=== PATIENT | male | born 1940 | race Caucasian/White ===

== ENCOUNTER → 2019-03-15 10:58 | Outpatient (CLI) | payer MEDICARE, SELFPAY ==
--- NOTE | 2019-03-15 11:34 | XR_ITS ---
XR knee LT 3V HISTORY: ITS.REASON: LEFT ANTERIOR KNEE PAIN ORDERING PHYSICIAN: Lana Lo MD PATIENT AGE: 78 years COMPARISON: None FINDINGS: Moderate osteoarthritic changes are present involving all 3 compartments which is worse at the medial compartment and patellofemoral joint. No fracture or dislocation. There is generalized vascular calcification. At least 2 calcifications are noted along the posterior aspect of the knee joint suspicious for loose bodies measuring up to 4 mm. 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
== END ==
PROVIDERS: PCP Emergency Medicine; Visit Provider Emergency Medicine
DX: M25.562 Pain in left knee (principal)
CPT/HCPCS: 73562

== ENCOUNTER 2020-09-02 16:19 | Emergency (ER) | payer MEDICARE, SELFPAY ==
[2020-09-02 17:30] VITALS: BP 121/71; PULSE 75; RESP 19; TEMP 36.8; O2SAT 99; BMI 19.0
--- NOTE | 2020-09-02 17:47 | HMH.EDUTC ---
[facility] [place] Impression: Encounter for laboratory testing for COVID-19 virus Disposition: Home, Self-Care Condition on Discharge: Good Instructions: DI for COVID-19 (Suspected or Confirmed ), Coronavirus Disease 2019, Preventing the Spread of Coronavirus Discharge Instructions Additional Instructions: *Monitor Temp, Over the counter Motrin or Tylenol as directed/as needed Tylenol every 4 hours and Motrin every 6 hours (as long as your family doctor has told you that you can take it) for fever or pain. and straight to ER if unable to lower temp less than 101.0 after medication given Follow up IMMEDIATELY for new or worsening symptoms or no Noticeable improvement over the next 48-72 hours. 911 for difficulty breathing or swallowing You were tested for today for COVID19 your test result should be back in the next 24-48 hours, you may call to the [facility] to see if your test results are back in the next 48 hours [phone] [facility] hours are 9am-9pm You was given a handout with instructions for Self Quarantine and Self isolation for while you wait on test results and what to do if they are positive If you are positive the Health Dept will be contacting you also Referrals: Cj Haney MD [Primary Care Provider] - As needed Time of Disposition: 17:49 Medical Decision Making - Inocente Inquiry Pt receiving controlled substance: No Inocente was queried for this patient: No Vital Signs: 09/02/20 17:30 Temperature 98.2 F Temperature Source Oral Pulse Rate [Left Brachial] 75 Respiratory Rate 19 Blood Pressure [Left Arm] 121/71 Blood Pressure Mean [Left Arm] 87 Blood Pressure Source [Left Arm] Automatic Cuff Blood Pressure Position [Left Arm] Sitting 02 Sat by Pulse Oximetry 99 Oxygen Delivery Method Room Air Orders (Tests/Meds): ORDERS Category Date Time Status Covid-19 Nasal PCR ([facility]) Routine Lab 09/02/20 17:27 [place] [facility] [place] - General Stated complaint: cov test Time Seen by Provider: 09/02/20 17:47 Mode of Arrival: Ambulatory Source of Information: Patient Limitations: No Limitations Description of Symptoms (Recalled from Triage Doc. by RN): COVID TEST D/T EXPOSURE; DENIES SYMPTOMS HEENT Symptoms (Recalled from RN notes): No Resp Symptoms (Recalled from RN notes): No Skin Symptoms (Recalled from RN notes): No MS Symptoms (Recalled from RN notes): No Functional Status (Recalled from RN notes): WNL - History of Present Illness Provider Complaint: Patient states that he was recently around his son that tested positive for COVID yesterday States that he isnt having any symptoms but wanted to get tested - Related Data Allergies Allergy/AdvReac Type Severity Reaction Status Date / Time diphenhydramine Allergy Mild Unverified 08/17/17 14:16 [From BENADRYL] prednisone [PREDNISONE] Allergy Mild Unverified 08/17/17 14:16 - Worker's Comp Is this a Worker's Comp case?: No [facility] History - Hepatitis A Screen Drug use history?: No High risk sexual behaviors?: No History of sexually transmitted infection?: No Currently employed?: No Childcare worker?: No Do you have indoor plumbing?: Yes Do you have electricity?: Yes Attestation statement:: This patient has been screened for Hepatitis A risk factors. I have reviewed the patient's past medical history: Yes - Social History Alcohol Intake: never Occupational Status: other ROS Obtained: Yes All systems reviewed & no additional complaints, Yes Systems reviewed as appropriate & no additional complaints - Constitutional Constitutional: Reports system reviewed and no additional complaints, except as docu, Denies body ache, Denies chills, Denies fever(s), Denies headache(s) - ENT Ears, Nose, Mouth, and Throat: Reports system reviewed and no additional complaints, except as docu, Denies nasal congestion, Denies nasal discharge, Denies sore throat - Cardiovascular Cardiovascular: Reports system reviewed and no additional complaints,
[2020-09-02 17:55] VITALS: BP 121/71; PULSE 75; RESP 19; TEMP 36.8; O2SAT 99
== END 2020-09-02 17:56 | disposition home or self-care (01) ==
PROVIDERS: Emergency Provider Nurse Practitioner; PCP Family Medicine
DX: Z20.822 Contact with and (suspected) exposure to COVID-19 (principal)
CPT/HCPCS: G0463; 99202; U0003

== ENCOUNTER → 2021-07-02 15:44 | Outpatient (CLI) | payer MEDICARE, SELFPAY ==
[2021-07-02 16:21] LABS: Basophils # 0.1 K/mm3 (0-0.2); Basophils % 1.1 % (0.1-2.0); Eosinophils # 0.2 K/mm3 (0.0-0.4); Eosinophils % 2.5 % (0.1-12.0); Hemoglobin 15.2 g/dL (14.1-18.0); Lymphocytes # 2.5 K/mm3 (0.7-4.5); Lymphocytes % 40.6 % (10-50); Mean Corpuscular Hemoglobin 30.5 pg (27.0-31.2); Mean Corpuscular Volume 92.3 fl (80-94); Mean Platelet Volume 10.3 fl (7.4-10.4); Monocytes # 0.3 K/mm3 (0.1-1.0); Neutrophils # 3.2 K/mm3 (1.8-7.8); Neutrophils % 50.9 % (37.0-80.0); Platelet Count 234 K/mm3 (142-424); Red Blood Count 4.98 M/mm3 (4.60-6.20); Red Cell Distribution Width 13.7 % (11.5-17.5); White Blood Count 6.3 K/mm3 (4.8-10.8)
[2021-07-02 16:47] LABS: Alanine Aminotransferase 17 U/L (12-78); Albumin Level 4.1 g/dl (3.5-5.0); Albumin/Globulin Ratio 1.4 (1.1-1.8); Alkaline Phosphatase 66 U/L (38-126); Anion Gap 10.6 mEq/L (5-15); Aspartate Amino Transferase 25 U/L (17-59); Bilirubin,Total 0.8 mg/dl (0.2-1.3); Blood Urea Nitrogen 12 mg/dl (9-20); Carbon Dioxide 29 mmol/L (22.0-30.0); Chloride 103 mmol/L (98-107); Chol/HDL Ratio 5.1 (1-3.5); Cholesterol 241 mg/dl (140-200); Estimated Glomerular Filt Rate 93 ml/min (>60); GFR (African American) 112 ML/MIN (>60); Glucose 132 mg/dl (74-100); HDL Cholesterol 47 mg/dl (40-60); Potassium 4.6 mmoL/L (3.5-5.1); Sodium 138 mmol/L (136-145); Total Protein,Serum 7.1 g/dl (6.3-8.2); Triglycerides 193 mg/dl (30-150); VLDL Cholesterol 39 mg/dL (0-40)
[2021-07-02 16:58] LABS: Direct LDL Cholesterol 165.66 mg/dL (100-129)
[2021-07-02 17:04] LABS: T4 (Thyroxine) 10.8 ug/dl (5.53-11.0)
[2021-07-02 17:18] LABS: Thyroid Stimulating Hormone 1.64 uIU/mL (0.465-4.68)
[2021-07-02 18:05] LABS: Hemoglobin A1C 6.5 % (4.0-6.0)
== END ==
PROVIDERS: Visit Provider Nurse Practitioner Family
DX: E11.9 Type 2 diabetes mellitus without complications (principal); Z79.4 Long term (current) use of insulin
CPT/HCPCS: 80053; 80061; 83036; 84436; 84443; 85025

== ENCOUNTER → 2021-10-27 16:00 | Outpatient (CLI) | payer MEDICARE, SELFPAY ==
[2021-10-27 17:36] LABS: Basophils # 0.1 K/mm3 (0-0.2); Basophils % 1.3 % (0.1-2.0); Eosinophils # 0.2 K/mm3 (0.0-0.4); Eosinophils % 2.2 % (0.1-12.0); Hematocrit 44.1 % (42.0-52.0); Hemoglobin 14.6 g/dL (14.1-18.0); Lymphocytes # 2.4 K/mm3 (0.7-4.5); Lymphocytes % 36.1 % (10-50); Mean Corpuscular HGB Conc 33.1 g/dL (31.8-35.4); Mean Corpuscular Hemoglobin 29.8 pg (27.0-31.2); Mean Corpuscular Volume 90.2 fl (80-94); Mean Platelet Volume 10.7 fl (7.4-10.4); Monocytes # 0.4 K/mm3 (0.1-1.0); Monocytes % 5.4 % (1.7-9.3); Neutrophils # 3.7 K/mm3 (1.8-7.8); Platelet Count 220 K/mm3 (142-424); Red Blood Count 4.89 M/mm3 (4.60-6.20); Red Cell Distribution Width 14.2 % (11.5-17.5); White Blood Count 6.7 K/mm3 (4.8-10.8)
[2021-10-27 17:44] LABS: Alanine Aminotransferase 21 U/L (12-78); Albumin Level 4.1 g/dl (3.5-5.0); Albumin/Globulin Ratio 1.3 (1.1-1.8); Anion Gap 10.5 mEq/L (5-15); Aspartate Amino Transferase 25 U/L (17-59); Bilirubin,Total 1.1 mg/dl (0.2-1.3); Blood Urea Nitrogen 20 mg/dl (9-20); Calcium 9.1 mg/dl (8.4-10.2); Carbon Dioxide 27 mmol/L (22.0-30.0); Chloride 105 mmol/L (98-107); Estimated Glomerular Filt Rate 93 ml/min (>60); GFR (African American) 112 ML/MIN (>60); Globulin 3.1 g/dL (1.3-3.2); Glucose 146 mg/dl (74-100); Potassium 4.5 mmoL/L (3.5-5.1); Sodium 138 mmol/L (136-145); Total Protein,Serum 7.2 g/dl (6.3-8.2); Triglycerides 195 mg/dl (30-150)
[2021-10-27 17:45] LABS: Alkaline Phosphatase 71 U/L (38-126); Chol/HDL Ratio 5.7 (1-3.5); Cholesterol 224 mg/dl (140-200); HDL Cholesterol 39 mg/dl (40-60); VLDL Cholesterol 39 mg/dL (0-40)
[2021-10-27 17:56] LABS: Direct LDL Cholesterol 146.63 mg/dL (100-129)
[2021-10-27 18:00] LABS: T4 (Thyroxine) 10.2 ug/dl (5.53-11.0)
[2021-10-27 18:14] LABS: Thyroid Stimulating Hormone 1.55 uIU/mL (0.465-4.68)
[2021-10-27 18:15] LABS: Hemoglobin A1C 6.7 % (4.0-6.0)
[2021-10-27 18:22] LABS: Amphetamine/Metha Screen,Urine Negative ng/ml (<1000)
[2021-10-27 18:23] LABS: Barbiturates Screen,Urine Negative ng/ml (<200)
[2021-10-27 18:24] LABS: Benzodiazepines Screen,Urine Negative ng/ml (<200); Cannabinoid Screen,Urine Negative ng/ml (<50)
[2021-10-27 18:25] LABS: Cocaine Screen,Urine Negative ng/ml (<300); Methadone Screen,Urine Negative ng/ml (<300)
[2021-10-27 18:26] LABS: Opiate Screen,Urine Negative ng/ml (<300)
[2021-10-27 18:27] LABS: Phencyclidine Screen,Urine Negative ng/ml (<25)
== END ==
PROVIDERS: Visit Provider Nurse Practitioner Family
DX: E11.65 Type 2 diabetes mellitus with hyperglycemia (principal); Z79.4 Long term (current) use of insulin; M54.2 Cervicalgia; Z79.899 Other long term (current) drug therapy
CPT/HCPCS: 80053; 80061; 80305; 82043; 83036; 84436; 84443; 85025

== ENCOUNTER → 2021-11-10 10:20 | Outpatient (CLI) | payer MEDICARE, SELFPAY ==
--- NOTE | 2021-11-10 10:27 | XR_ITS ---
FINAL REPORT CLINICAL HISTORY: neck pain, pain on right side of neck, pain for 5 weeks FINDINGS: CERVIX SPINE Multiple views were obtained. There is no acute fracture. There is mild retrolisthesis of C5 on C6. There are moderate and severe degenerative changes with disc space narrowing and osteophytes. There is multilevel mild and moderate neural foraminal narrowing. There is no soft tissue abnormality. IMPRESSION: Moderate and severe changes of degenerative disc disease as above. Reviewed, Interpreted and Dictated by Yogesh Mercado III, MD Transcribed by Laurie Cameron Authenticated by Yogesh Mercado III, MD on 11/10/2021 12:55:[address] [facility]
== END ==
PROVIDERS: PCP Nurse Practitioner Family; Visit Provider Nurse Practitioner Family
DX: M54.2 Cervicalgia (principal)
CPT/HCPCS: 72050

== ENCOUNTER → 2021-12-29 13:22 | Outpatient (CLI) | payer MEDICARE, SELFPAY ==
--- NOTE | 2021-12-29 13:23 | MR_ITS ---
FINAL REPORT CLINICAL HISTORY: Back pain. [id number] AGO HEARD A POP IN NECK. RT SIDED POSTERIOR HEAD PAIN. PRESSURE IN HEAD. NO INJURY OR TRAUMA. FINDINGS: Multiplanar MR imaging of the cervical spine was performed without contrast. On the sagittal T2-weighted images, disc degeneration is seen at multiple levels. There are endplate changes at multiple levels. There is no evidence of fracture. The vertebral alignment is normal. The cervical spinal cord has an unremarkable appearance without evidence of mass, edema or syrinx. The cervicomedullary junction is normal. C2-3: An annular bulge is present. There is a left paracentral disc protrusion which contacts the anterior surface of the cord. C3-4: A disc osteophyte complex is present with severe bilateral neural foraminal narrowing. There is mild cord contouring on the left. C4-5: A disc osteophyte complex is present with severe bilateral neural foraminal narrowing. There is mild central canal stenosis with and AP diameter of the thecal sac of 9 mm. C5-6: A disc osteophyte complex is present with severe bilateral neural foraminal narrowing. There is mild central canal stenosis with and AP diameter of the thecal sac of 9 mm. C6-7: A disc osteophyte complex is present with severe bilateral neural foraminal narrowing. There is mild central canal stenosis with and AP diameter of the thecal sac of 9 mm. C7-T1: An annular bulge is present. There is moderate bilateral neuroforaminal narrowing. T1-T2: An annular bulge is present. There is mild left neural foraminal narrowing. IMPRESSION: Multilevel degenerative disc disease with spondylosis and areas of severe neural foraminal narrowing. Mild central canal stenosis C4-C5 through C6-C7. Reviewed, Interpreted and Dictated by Yogesh Mercado III, MD Transcribed by Ivana Medina Authenticated by Yogesh Mercado III, MD on 12/29/2021 03:36:49 PM [facility]
== END ==
PROVIDERS: PCP Nurse Practitioner Family; Visit Provider Nurse Practitioner Family
DX: M54.2 Cervicalgia
CPT/HCPCS: 72141; 76376

== ENCOUNTER → 2022-01-01 09:50 | Outpatient (CLI) | payer MEDICARE, SELFPAY ==
[2022-01-01 10:04] LABS: Microscopic, Urine URINE MICROSCOPIC (MICROSCOPIC)
[2022-01-01 10:35] LABS: Appearance,Urine CLEAR (Clear); Bilirubin,Urine Negative (Negative); Blood, Urine Negative (Negative); Color,Urine YELLOW (Yellow); Glucose,Urine (UA) Negative (Negative); Ketones,Urine Negative (Negative); Leukocyte Esterase,Urine Negative (Negative); Nitrate,Urine Negative (Negative); Protein,Urine Negative (Negative); Specific Gravity, Urine 1.025 (1.005-1.030); Urobilinogen,Urine 0.2 EU/dl (0.2)
[2022-01-01 10:37] LABS: Basophils # 0.2 K/mm3 (0-0.2); Basophils % 2.5 % (0.1-2.0); Eosinophils # 0.3 K/mm3 (0.0-0.4); Eosinophils % 4.6 % (0.1-12.0); Hemoglobin 14.3 g/dL (14.1-18.0); Lymphocytes # 2.4 K/mm3 (0.7-4.5); Lymphocytes % 35.2 % (10-50); Mean Corpuscular HGB Conc 33.2 g/dL (31.8-35.4); Mean Corpuscular Hemoglobin 30.5 pg (27.0-31.2); Mean Corpuscular Volume 91.9 fl (80-94); Mean Platelet Volume 9.8 fl (7.4-10.4); Monocytes # 0.4 K/mm3 (0.1-1.0); Monocytes % 5.7 % (1.7-9.3); Neutrophils # 3.6 K/mm3 (1.8-7.8); Neutrophils % 52.1 % (37.0-80.0); Platelet Count 194 K/mm3 (142-424); Red Blood Count 4.68 M/mm3 (4.60-6.20); Red Cell Distribution Width 13.9 % (11.5-17.5); White Blood Count 6.8 K/mm3 (4.8-10.8)
[2022-01-01 10:52] LABS: Albumin Level 3.9 g/dl (3.5-5.0); Anion Gap 9.9 mEq/L (5-15); Blood Urea Nitrogen 19 mg/dl (9-20); Calcium 9.3 mg/dl (8.4-10.2); Carbon Dioxide 31 mmol/L (22.0-30.0); Chloride 102 mmol/L (98-107); Estimated Glomerular Filt Rate 81 ml/min (>60); GFR (African American) 98 ML/MIN (>60); Glucose 193 mg/dl (74-100); Phosphorous 3.9 mg/dl (2.5-4.5); Potassium 4.9 mmoL/L (3.5-5.1); Sodium 138 mmol/L (136-145)
[2022-01-01 10:53] LABS: Bacteria,Urine Trace /lpf; WBC,Urine Occasional #/hpf (0-3)
[2022-01-01 11:03] LABS: Intact Parathyroid Hormone 25.8 pg/mL (7.5-53.5)
[2022-01-01 11:07] LABS: 25-OH Vitamin D, Total 43.6 ng/mL (30-100)
[2022-01-01 11:29] LABS: Microalbumin/Creatinine Ratio 6.7
[2022-01-01 11:30] LABS: Creatinine,Urine Random 138 mg/dL (Not Estab.)
== END ==
PROVIDERS: PCP Nurse Practitioner Family; Visit Provider Internal Medicine Nephrology
DX: R80.9 Proteinuria, unspecified (principal); E55.9 Vitamin D deficiency, unspecified
CPT/HCPCS: 36415; 80069; 81001; 82043; 82306; 82570; 83970; 84155; 85025

== ENCOUNTER → 2022-01-05 13:54 | Outpatient (POV) | payer MEDICARE, SELFPAY | PROVIDERS: Visit Provider Internal Medicine Nephrology | DX: Z00.00 Encounter for general adult medical examination without abnormal findings (principal) ==

== ENCOUNTER → 2022-01-23 09:52 | Outpatient (CLI) | payer MEDICARE, SELFPAY ==
[2022-01-23 17:02] LABS: Alanine Aminotransferase 15 U/L (12-78); Albumin Level 3.8 g/dl (3.5-5.0); Albumin/Globulin Ratio 1.3 (1.1-1.8); Alkaline Phosphatase 85 U/L (38-126); Anion Gap 11.5 mEq/L (5-15); Aspartate Amino Transferase 23 U/L (17-59); Basophils # 0.1 K/mm3 (0-0.2); Basophils % 2.6 % (0.1-2.0); Bilirubin,Total 0.9 mg/dl (0.2-1.3); Blood Urea Nitrogen 18 mg/dl (9-20); Calcium 9.3 mg/dl (8.4-10.2); Carbon Dioxide 28 mmol/L (22.0-30.0); Chloride 104 mmol/L (98-107); Chol/HDL Ratio 5.3 (1-3.5); Cholesterol 228 mg/dl (140-200); Eosinophils # 0.2 K/mm3 (0.0-0.4); Eosinophils % 2.8 % (0.1-12.0); Estimated Glomerular Filt Rate 81 ml/min (>60); GFR (African American) 98 ML/MIN (>60); Glucose 188 mg/dl (74-100); HDL Cholesterol 43 mg/dl (40-60); Hematocrit 44.5 % (42.0-52.0); Hemoglobin 14.8 g/dL (14.1-18.0); Lymphocytes # 2.2 K/mm3 (0.7-4.5); Lymphocytes % 41.3 % (10-50); Mean Corpuscular HGB Conc 33.3 g/dL (31.8-35.4); Mean Corpuscular Hemoglobin 30.4 pg (27.0-31.2); Mean Corpuscular Volume 91.5 fl (80-94); Monocytes # 0.3 K/mm3 (0.1-1.0); Monocytes % 5.4 % (1.7-9.3); Neutrophils # 2.6 K/mm3 (1.8-7.8); Neutrophils % 47.9 % (37.0-80.0); Platelet Count 193 K/mm3 (142-424); Potassium 4.5 mmoL/L (3.5-5.1); Red Blood Count 4.86 M/mm3 (4.60-6.20); Red Cell Distribution Width 13.8 % (11.5-17.5); Sodium 139 mmol/L (136-145); Total Protein,Serum 6.8 g/dl (6.3-8.2); Triglycerides 170 mg/dl (30-150); VLDL Cholesterol 34 mg/dL (0-40); White Blood Count 5.4 K/mm3 (4.8-10.8)
[2022-01-23 17:13] LABS: Direct LDL Cholesterol 149.45 mg/dL (100-129)
[2022-01-23 17:19] LABS: 25-OH Vitamin D, Total 44.7 ng/mL (30-100); Hemoglobin A1C 6.7 % (4.0-6.0)
[2022-01-23 17:20] LABS: T4 (Thyroxine) 11.9 ug/dl (5.53-11.0)
== END ==
PROVIDERS: PCP Nurse Practitioner Family; Visit Provider Nurse Practitioner Family
DX: E11.65 Type 2 diabetes mellitus with hyperglycemia; Z79.4 Long term (current) use of insulin
CPT/HCPCS: 80053; 80061; 82306; 83036; 84436; 84443; 84681; 85025

== ENCOUNTER → 2022-04-20 10:36 | Outpatient (CLI) | payer MEDICARE, SELFPAY ==
--- NOTE | 2022-04-20 10:46 | XR_ITS ---
FINAL REPORT CLINICAL HISTORY: LT KNEE PAIN FINDINGS: LEFT KNEE Three views of the left knee were obtained. There is no acute fracture or dislocation. There is moderate narrowing of the medial compartment joint space. There is subchondral sclerosis and osteophyte formation. There are small osteophytes along the undersurface of the patella. Soft tissues are unremarkable. IMPRESSION: Degenerative changes with no acute bony abnormality. Reviewed, Interpreted and Dictated by Jose Hubbard MD Transcribed by Laurie Cameron Authenticated and [facility]
== END ==
PROVIDERS: PCP Nurse Practitioner Family; Visit Provider Nurse Practitioner Family
DX: M25.562 Pain in left knee (principal)
CPT/HCPCS: 73562

== ENCOUNTER → 2022-10-26 23:46 | Outpatient (CLI) | payer MEDICARE, SELFPAY | PROVIDERS: Visit Provider Nurse Practitioner Family | DX: B35.1 Tinea unguium (principal) | CPT/HCPCS: 87102; 87206; 87220 ==

== ENCOUNTER → 2023-01-19 14:12 | Outpatient (CLI) | payer MEDICARE, SELFPAY ==
--- NOTE | 2023-01-19 14:16 | XR_ITS ---
FINAL REPORT CLINICAL HISTORY: LT ANKLE/JOINT PAIN FINDINGS: Left ankle Three views were obtained. There is no acute fracture or dislocation. There are moderate degenerative changes. There is lateral tilt of the talus. Chronic calcification is seen inferior to the medial malleolus. IMPRESSION: Degenerative and chronic appearing findings. Reviewed, Interpreted and Dictated by Yogesh Mercado III, MD Transcribed by Pia Wynn Authenticated and [facility]
== END ==
PROVIDERS: PCP Nurse Practitioner Family; Visit Provider Nurse Practitioner Family
DX: M25.572 Pain in left ankle and joints of left foot (principal)
CPT/HCPCS: 73610

== ENCOUNTER 2025-04-10 13:30 | Outpatient (CLI) | payer MEDICARE, SELFPAY ==
--- OUTSIDE RECORDS SUMMARY | 2025-04-10 13:36 | XMS_ITS | Clinical Summary ---
Author Organization Healthcare Address [address] [place] [address] Care Team Providers Care Hand Ironer Name Role Phone Renetta Harley PATTERNMAKER HELPER Primary Care Provider [phone] Syl Balderas PATTERNMAKER HELPER Unavailable [phone] Allergies No known active allergies Medications gabapentin (Neurontin) 600 MG tablet Take by mouth 3 (three) times a day. Active insulin aspart protamine-insuli n aspart (NovoLOG Mix 70-30) (70-30) 100 UNIT/ML injection Inject under the skin 2 (two) times a day with meals. Active ferrous sulfate 324 (65 Fe) MG EC tablet Take 324 mg by mouth 1 (one) time each day with breakfast. Do not crush, chew, or split. Active aspirin 81 MG EC tablet Take 81 mg by mouth 1 (one) time each day. Active zinc gluconate 50 MG tablet Take 50 mg by mouth 1 (one) time each day. Active cholecalciferol (Vitamin D-3) 25 MCG (1000 UT) capsule Take 1,000 Units by mouth 1 (one) time each day. Active Active Problems Problem Noted Date Diagnosed Date Microalbuminuria 01/05/2022 CKD (chronic kidney disease) stage 1, GFR 90 ml/min or greater 01/05/2022 Family History Medical History Relation Name Comments Cancer Father Cancer Mother Diabetes Mother Relation Name Status Comments Father Mother Social History Tobacco Use Types Packs/Day Years Used Date Smoking Tobacco: Never Smokeless Tobacco: Never Alcohol Use Standard Drinks/Week Comments Yes 0 (1 standard drink = 0.6 oz pur e alcohol) a few times a week Sex and Gender Information Value Date Recorded Sex Assigned at Not on file Legal Sex Male 2:11 PM EDT Gender Identity Not on file Sexual Orientation Not on file Last Filed Vital Signs Vital Sign Reading Time Taken Comments Blood Pressure 142/82 01/19/2022 1:10 PM EDT Pulse 77 01/19/2022 1:10 PM EDT Temperature - - Respiratory Rate - - Oxygen Saturation 93% 01/19/2022 1:10 PM EDT Inhaled Oxygen Concentration - - Weight 74.8 kg (165 lb) 01/19/2022 1:10 PM EDT Height 181.6 cm (5' 11.5 ) 01/19/2022 1:10 PM ED T Body Mass Index 22.69 01/19/2022 1:10 PM EDT Plan of Treatment Health Maintenance Due Date Last Done Comments [facility]-Depression Screening 1940 [facility]-Infant/Child/Adol SDOH Screenings 1940 [facility]- SDOH Screenings 1957 [facility]-Adult SDOH Screenings 1957 [facility]-DTaP,Tdap,and Td Vaccines (1 - Tdap) 1958 [facility]-Zoster Vaccines (1 of 2) 1989 [facility]-RSV Vaccine: 60+ Years or (1 - 1-dose 75+ series) 2014 [facility]-Pneumococcal Vaccine: 50+ Years (2 of 2 - PCV) 07/05/2021 07/05/2020 [id number] Vaccine ( season) 2024 07/08/2021, 11/06/2020, 10/09/2020 [facility]-Influenza Vaccine (#1) 2025 06/13/2018 HPV Vaccines Aged Out No longer eligi ble based on patient's age to complete this topic [facility]-HIB Vaccines Aged Out No longer e ligible based on patient's age to complete this topic [facility]-Hepatitis A Vaccines Aged Out No longer eligible based on patient's age to complete this topic [facility]-IPV Vaccines Aged Out No longer e ligible based on patient's age to complete this topic [facility]-Rotavirus Vaccines Aged Out No lo nger eligible based on patient's age to complete this topic Insurance Care Teams Hand Ironer Relationship Specialty Start Date End Date Renetta Harley APRN [address] [place] [address] PCP - General 11/17/21 Syl Balderas APRN [address] [facility] [address] [place] [address] Nurse Practitioner Neurosurgery 01/19/22
--- OUTSIDE RECORDS SUMMARY | 2025-04-10 13:36 | XMS_ITS | Clinical Summary ---
Author Organization [employer] ([place], [place], [place], [place]) Address [address] [place] [address] Care Team Providers Care Major Account Manager Name Role Phone Unavailable Primary Care Provider Unavailabl e Social History Tobacco Use Types Packs/Day Years Used Date Smoking Tobacco: Never Assessed Food Insecurity Answer Date Recorded Food run out past 12 months Not on file 09/30 Food did not last past 12 months Not on file 10/14/2023 Employment Answer Date Recorded Help finding and keeping a job Not on file 0 10/14/2023 Family and Community Support Answer Sandeep e Recorded Help with Day to Day Activities Not on file 10/14/2023 Feeling Lonely or Isolated Not on file 10/14 Educational Attainment Answer Date Shaka rded Speak language other than Taiwanese at home Not on file 10/14/2023 Want help with school or training Not on file 10/14/2023 Substance Use Answer Date Recorded Used prescription meds for non-medical reasons N ot on file 10/14/2023 Used illegal drugs past 12 months Not on file 10/14/2023 Sex and Gender Information Value Date Recorded Sex Assigned at Not on file Legal Sex Male 1:47 PM CDT Gender Identity Not on file Sexual Orientation Not on file Plan of Treatment Health Maintenance Due Date Last Done Comments Medicare Initial AWV [id number] Depression Screening (12+) 1952 Tobacco Cessation Counseling and Screening (12+) 1951 DTAP/TDAP/TD VACCINES (1 - Tdap) 1958 Shingles Vaccine (Zoster) (1 of 2) 1989 Respiratory Syncytial Virus (RSV) Adult or (1 - 1-dose 75+ series) 2014 Pneumococcal 50+ years (2 of 2 - PCV) 07/05/2021 07/05/2020 COVID-19 VACCINE ( - 2023-2 5 season) 2024 07/01/2022, 07/08/2021, 11/06/2020, Additional history exists Falls Risk Screening 08/30/2024 Influenza Vaccine (#1) 2025 3, 05/30/2022, 07/02/2021, Additional history exists Insurance [employer] [place] MCR ADV
--- OUTSIDE RECORDS SUMMARY | 2025-04-10 13:36 | XMS_ITS | Encounter Summary ---
Author Organization [employer] ([place], [place], [place], [place]) Address [address] [place] [address] Care Team Providers Care Roll Up Machine Operator Name Role Phone Unavailable Primary Care Provider Unavailabl e Encounter Details Date Type Department Care Team (Late st Contact Info) Description 01/28/2023 Lab Requisition [facility] [address] [place] [address] Jarret Garcia MD [address] [place] [address] Effusion, left knee Social History Tobacco Use Types Packs/Day Years Used Date Smoking Tobacco: Never Assessed Sex and Gender Information Value Date Recorded Sex Assigned at Not on file Legal Sex Male 1:47 PM CDT Gender Identity Not on file Sexual Orientation Not on file documented as of this encounter Plan of Treatment Not on file documented as of this encounter Procedures Procedure Name Priority Date/Time Associated Diagnosis Comments SJ DIFFERENTIAL, BODY FLUID Routine 01/28/2023 11:40 AM EDT Effusion, left knee AFB CULTURE AND STAIN Routine 01/28/2023 11:40 AM EDT Effusion, left knee FUNGUS CULTURE W/KIMBERLY OR VERONICA INK Routine 01/28/2023 11:40 AM EDT Effusion, left knee ANAEROBIC CULTURE, EXTENDED (P.ACNES) Routine 01/28/2023 11:40 AM EDT Effusion, left knee BODY FLUID CRYSTALS Routine 01/28/2023 1 1:40 AM EDT Effusion, left knee BODY FLUID CULTURE + GRAM STAIN Routine 01/28/2023 11:40 AM EDT Effusion, left knee BODY FLUID CELL COUNT WITH DIFFERENTIAL Routine 01/28/2023 11:40 AM EDT Effusion, left knee documented in this encounter Results * DIFFERENTIAL, BODY FLUID (01/28/2023 11:40 AM EDT) Neutrophils Fluid 5 0 - 25 % 01/28/2023 8:12 PM EDT [facility] Lymphocytes Fluid 57 % 01/28/2023 8:12 PM EDT [facility] Monocytes Fluid 38 0 - 65 % 8:12 PM EDT [facility] Synovial Fluid STRUCTURE OF LEFT KNEE REGION / Unknown 01/28/2023 11:40 AM EDT 01/28/2023 7:47 PM EDT Jarret Garcia MD BODY FLUIDS AND STOOLS ORDERABLES Final Result [facility] [address] [place] [address], [facility] [phone] * AFB Culture And Stain (01/28/2023 11:40 AM EDT) Result No Acid Fast Bacilli isolated at 6 weeks 03/11/2023 8:00 PM EDT [facility] AFB Smear No acid fast bacilli seen 03/11/2023 8:00 PM EDT [facility] Synovial Fluid STRUCTURE OF LEFT KNEE REGION / Unknown 01/28/2023 11:40 AM EDT 01/28/2023 7:47 PM EDT Jarret Garcia MD MICROBIOLOGY - GENERAL ORDERABLES Final Result [facility] [address] [place] [address], [facility] [phone] * Body fluid crystals (01/28/2023 11:40 AM EDT) BODY FLUID TYPE Synovial 8:10 PM EDT [facility] Ca Phos Winter, UA Absent Absent 01/28/2023 8:10 PM EDT [facility] Monosodium Urate Absent Absent 01/28/2023 8:10 PM EDT [facility] Synovial Fluid STRUCTURE OF LEFT KNEE REGION / Unknown 01/28/2023 11:40 AM EDT 01/28/2023 7:47 PM EDT Jarret Garcia MD BODY FLUIDS AND STOOLS ORDERABLES Final Result [facility] [address] [phone] * Fungus Culture W/KIMBERLY Or Veronica Ink (01/28/2023 11:40 AM EDT) Result No fungus isolated at 6 weeks. 03/11/2023 8:00 PM EDT [facility] KIMBERLY Prep No fungal elements seen 03/11/2023 8:00 PM EDT [facility] Synovial Fluid STRUCTURE OF LEFT KNEE REGION / Unknown 01/28/2023 11:40 AM EDT 01/28/2023 7:47 PM EDT Jarret Garcia MD MICROBIOLOGY - GENERAL ORDERABLES Final Result Performing Organization Address City/[facility]/ZIP Co de Phone Number [facility] [address] [phone] * (ABNORMAL) Body fluid cell count with differential (01/28/2023 11:40 AM EDT) Appearance Cloudy(A) Clear 01/28/2023 8:12 PM EDT [facility] Color Yellow 01/28/2023 8:12 PM EDT [facility] BODY FLUID TYPE Synovial 8:12 PM EDT [facility] Auto WBC/Nucleated Cells BF 332 u/L 01/28/2023 8:12 PM EDT [facility] Comment: Please refer to specific WBC/Nucleated Cell Count Body Fluid reference ranges below: For Pleural: 0-1000 Peritoneal: 0-1000 Pericardial:0-1000 Synovial: 0-200 Auto RBC BF 12,000 u/L 01/28/2023 8:12 PM EDT [facility] Comment: Please refer to specific RBC Cell Count Body Fluid reference ranges below: Pleural: 0-10,000 Peritoneal: 0-10,000 Pericardial:0-10,000 Synovial:0-30 Synovial Fluid STRUCTURE OF LEFT KNEE REGION / Unknown 01/28/2023 11:40 AM EDT 01/28/2023 7:47 PM EDT Narrative [facility] - 01/28/2023 8:12 PM EDT There is normally no readily obtainable pleural, peritoneal and pericardial fluid, hence normal elements for these potential fluids are not defined. Jarret Garcia MD BODY FLUIDS AND STOOLS ORDERABLES Final Result Performing Organization Address [facility] Co de Phone Number [facility] [address] [phone] * Body Fluid Culture + Gram Stain (01/28/2023 11:40 AM EDT) Result No growth 02/01/2023 8:10 AM EDT [facility] Gram Stain Result No cells seen 02/01/2023 8:10 AM EDT [facility] Gram Stain Result No organisms seen 02/01/2023 8:10 AM EDT [facility] Synovial Fluid STRUCTURE OF LEFT KNEE REGION / Unknown 01/28/2023 11:40 AM EDT 01/28/2023 7:47 PM EDT Jarret Garcia MD MICROBIOLOGY - GENERAL ORDERABLES Final Result Performing Organization Address [facility]/ZIP Co de Phone Number [facility] [address] [phone] * Anaerobic Culture, Extended (P.acnes) (01/28/2023 11:40 AM EDT) Result No anaerobic growth at 14 days. No Cutibacterium acnes (formerly Propionibacterium acnes) isolated 02/12/2023 8:03 AM EDT [facility] Synovial Fluid STRUCTURE OF LEFT KNEE REGION / Unknown 01/28/2023 11:40 AM EDT 01/28/2023 7:47 PM EDT us Jarret Garcia MD MICROBIOLOGY - GENERAL ORDERABLES Final Result Performing Organization Address City/State/[facility] Co de Phone Number [facility] [address] [phone] documented in this encounter Visit Diagnoses Diagnosis Effusion, left knee documented in this encounter
--- OUTSIDE RECORDS SUMMARY | 2025-04-10 13:36 | XMS_ITS | Encounter Summary ---
Author Organization Healthcare Address [address] [place] [id number] Care Team Providers Care Inserter Promotional Item Name Role Phone Renetta Harley SCAFFOLD SETTER Primary Care Provider [phone] Syl Balderas SCAFFOLD SETTER Unavailable [phone] Reason for Referral * Consultation (Routine) - Closed Specialty Diagnoses / Procedures Referred By Kp woodruff Referred To Contact Neurosurgery Diagnoses Cervicalgia Renetta Harley APRN [address] [place] [address] Phone: tel: fax: Referral ID Status Reason Start Date Expiration Date V isits Requested Visits Authorized [id number] Closed Specialty Services Required 01/05/2022 07/07/2023 1 1 Encounter Details Date Type Department Care Team (Late st Contact Info) Description 01/05/2022 Community [facility] [address] [place] [address] Renetta Harley APRN [address] [place] [id number] Cervicalgia (Primary Dx) Social History Tobacco Use Types Packs/Day Years [...] on file Sexual Orientation Not on file COVID-19 Exposure Response Date Recorded In the last 10 days, have yo u been in contact with someone who was confirmed or suspected to have Coronavirus/COVID-19? No / Unsure 01/05/2022 1:59 PM EDT documented as of this encounter Plan of Treatment Scheduled Referrals Name Type Priority Associated Diagnoses Order Schedule Ambulatory Referral to Neurosurgery Outpatient Referral Routine Cervicalgia Expected: 01/05/2022 (Approximate), Expires: 04/07/2022 documented as of this encounter Visit Diagnoses Diagnosis Cervicalgia- Primary documented in this encounter Care Teams Inserter Promotional Item Relationship Specialty Start Date End Date Renetta Harley, SCAFFOLD SETTER [address] [place] [id number] PCP - General 11/17/21 Syl Balderas, SCAFFOLD SETTER [address] [facility] [address] [place] [address] Nurse Practitioner Neurosurgery 01/19/22 documented as of this encounter
--- OUTSIDE RECORDS SUMMARY | 2025-04-10 13:36 | XMS_ITS | Encounter Summary ---
Author Organization [employer] ([place], [place], [place], [place]) Address [address] [place] [address] Care Team Providers Care Patient Safety Officer Name Role Phone Unavailable Primary Care Provider Unavailabl e Encounter Details Date Type Department Care Team (Late st Contact Info) Description 10/14/2023 Lab Requisition [facility] [address] [place] [address] Jarret Garcia MD [address] [place] [address] Effusion, left knee Social History [...] Procedure Name Priority Date/Time Associated Diagnosis Comments [facility] DIFFERENTIAL, BODY FLUID Routine 10/14/2023 4:00 PM EST Effusion, left knee AFB CULTURE AND STAIN Routine 10/14/2023 4:00 PM EST Effusion, left knee FUNGUS CULTURE W/KIMBERLY OR VERONICA INK Routine 10/14/2023 4:00 PM EST Effusion, left knee ANAEROBIC CULTURE, EXTENDED (P.ACNES) Routine 10/14/2023 4:00 PM EST Effusion, left knee BODY FLUID CRYSTALS Routine 10/14/2023 4 :00 PM EST Effusion, left knee BODY FLUID CULTURE + GRAM STAIN Routine 10/14/2023 4:00 PM EST Effusion, left knee BODY FLUID CELL COUNT WITH DIFFERENTIAL Routine 10/14/2023 4:00 PM EST Effusion, left knee documented in this encounter Results * DIFFERENTIAL, BODY FLUID (10/14/2023 4:00 PM EST) Neutrophils Fluid 5 0 - 25 % 10/14/2023 8:10 PM EST [facility] Lymphocytes Fluid 46 % 10/14/2023 8:10 PM EST [facility] Monocytes Fluid 34 0 - 65 % 8:10 PM EST [facility] Mesothelial, Fluid 15 % 10/14/2023 8:10 PM EST [facility] Comment:Synoviocytes* Synovial Fluid STRUCTURE OF LEFT KNEE REGION / Unknown 10/14/2023 4:00 PM EST 10/14/2023 8:08 PM EST us Jarret Garcia MD BODY FLUIDS AND STOOLS ORDERABLES Final Result [facility] [address] [employer] [address] [phone] * Body fluid crystals (10/14/2023 4:00 PM EST) BODY FLUID TYPE Synovial 10/14/2023 8:10 PM EST [facility] Ca Phos Winter, UA Absent Absent 10/14/2023 8:10 PM EST [facility] Monosodium Urate Absent Absent 10/14/2023 8:10 PM EST [facility] Body Fluid Crystals No crystals seen. No crystals seen., See Comment 10/14/2023 8:10 PM EST [facility] Synovial Fluid STRUCTURE OF LEFT KNEE REGION / Unknown 10/14/2023 4:00 PM EST 10/14/2023 8:08 PM EST Narrative [facility] - 10/14/2023 8:10 PM EST Under polarized light, corticosteroids may appear identical to monosodium urates or calcium pyrophosphates, so please correlate with any history of intra-articular injection of steroids. Jarret Garcia MD BODY FLUIDS AND STOOLS ORDERABLES Final Result Performing Organization Address City/[facility]/ZIP Co de Phone Number [facility] [address] [phone] * Fungus Culture W/KIMBERLY Or Veronica Ink (10/14/2023 4:00 PM EST) Result No fungus isolated at 6 weeks. 11/25/2023 10:01 PM EDT [facility] KIMBERLY Prep No fungal elements seen 11/25/2023 10:01 PM EDT [facility] Synovial Fluid STRUCTURE OF LEFT KNEE REGION / Unknown 10/14/2023 4:00 PM EST 10/14/2023 8:09 PM EST us Jarret Garcia MD MICROBIOLOGY - GENERAL ORDERABLES Final Result [facility] [address] [phone] * AFB Culture And Stain (10/14/2023 4:00 PM EST) Result No Acid Fast Bacilli isolated at 6 weeks 11/25/2023 10:01 PM EDT [facility] AFB Smear No acid fast bacilli seen 11/25/2023 10:01 PM EDT [facility] Synovial Fluid STRUCTURE OF LEFT KNEE REGION / Unknown 10/14/2023 4:00 PM EST 10/14/2023 8:09 PM EST Jarret Garcia MD MICROBIOLOGY - GENERAL ORDERABLES Final Result Performing Organization Address [facility] Co de Phone Number [facility] [address] [phone] * (ABNORMAL) Body fluid cell count with differential (10/14/2023 4:00 PM EST) Appearance Hazy(A) Clear 10/14/2023 8:10 PM EST [facility] Color Yellow 10/14/2023 8:10 PM EST [facility] BODY FLUID TYPE Synovial 8:10 PM EST [facility] Auto WBC/Nucleated Cells BF 484 /uL 10/14/2023 8:10 PM EST [facility] Comment: Please refer to specific WBC/Nucleated Cell Count Body Fluid reference ranges below: For Pleural: 0-1000 Peritoneal: 0-1000 Pericardial:0-1000 Synovial: 0-200 Auto RBC BF 11,000 /uL 10/14/2023 8:10 PM EST [facility] Comment: Please refer to specific RBC Cell Count Body Fluid reference ranges below: Pleural: 0-10,000 Peritoneal: 0-10,000 Pericardial:0-10,000 Synovial:0-30 Synovial Fluid STRUCTURE OF LEFT KNEE REGION / Unknown 10/14/2023 4:00 PM EST 10/14/2023 8:08 PM EST Narrative [facility] - 10/14/2023 8:10 PM EST There is normally no readily obtainable pleural, peritoneal and pericardial fluid, hence normal elements for these potential fluids are not defined. Jarret Garcia MD BODY FLUIDS AND STOOLS ORDERABLES Final Result Performing Organization Address City/[facility]/ZIP Co de Phone Number [facility] [address] [phone] * Anaerobic Culture, Extended (P.acnes) (10/14/2023 4:00 PM EST) Result No anaerobic growth at 14 days. No Cutibacterium acnes (formerly Propionibacterium acnes) isolated 10/29/2023 9:09 AM EST [facility] Synovial Fluid STRUCTURE OF LEFT KNEE REGION / Unknown 10/14/2023 4:00 PM EST 10/14/2023 8:09 PM EST Jarret Garcia MD MICROBIOLOGY - GENERAL ORDERABLES Final Result [facility] [address] [phone] * Body Fluid Culture + Gram Stain (10/14/2023 4:00 PM EST) Result No growth 10/18/2023 7:35 AM EST [facility] Gram Stain Result No organisms seen 10/18/2023 7:35 AM EST [facility] Gram Stain Result No cells seen 10/18/2023 7:35 AM EST [facility] Synovial Fluid STRUCTURE OF LEFT KNEE REGION / Unknown 10/14/2023 4:00 PM EST 10/14/2023 8:09 PM EST Jarret Garcia MD MICROBIOLOGY - GENERAL ORDERABLES Final Result [facility] [address] [phone] documented in this encounter Visit Diagnoses Diagnosis Effusion, left knee documented in this encounter
--- OUTSIDE RECORDS SUMMARY | 2025-04-10 13:36 | XMS_ITS | Encounter Summary ---
Author Organization [employer] ([place], [place], [place], [place]) Address [address] [place] [address] Care Team Providers Care Gun Examiner Name Role Phone Unavailable Primary Care Provider Unavailabl e Encounter Details Date Type Department Care Team (Late st Contact Info) Description 08/14/2022 Lab Requisition [facility] [address] [place] [address] Jarret Garcia MD [address] [place] [address] Effusion, left knee Social History [...] Diagnosis Comments [facility] DIFFERENTIAL, BODY FLUID Routine 08/13/2022 5:15 PM EST Effusion, left knee AFB CULTURE AND STAIN Routine 08/13/2022 5:15 PM EST Effusion, left knee FUNGUS CULTURE W/KIMBERLY OR VERONICA INK Routine 08/13/2022 5:15 PM EST Effusion, left knee ANAEROBIC CULTURE, EXTENDED (P.ACNES) Routine 08/13/2022 5:15 PM EST Effusion, left knee BODY FLUID CRYSTALS Routine 08/13/2022 5 :15 PM EST Effusion, left knee BODY FLUID CULTURE + GRAM STAIN Routine 08/13/2022 5:15 PM EST Effusion, left knee BODY FLUID CELL COUNT WITH DIFFERENTIAL Routine 08/13/2022 5:15 PM EST Effusion, left knee documented in this encounter Results * [facility] DIFFERENTIAL, BODY FLUID (08/13/2022 5:15 PM EST) Neutrophils Fluid 91 0 - 25 % 08/14/2022 1:21 PM EST [facility] Lymphocytes Fluid 1 % 08/14/2022 1:21 PM EST [facility] Monocytes Fluid 7 0 - 65 % 1:21 PM EST [facility] % Eos 1 % 08/14/2022 1:21 PM EST [facility] Body Fluid STRUCTURE OF LEFT KNEE REGION / Unknown 08/13/2022 5:15 PM EST 08/14/2022 11:54 AM EST Jarret Garcia MD BODY FLUIDS AND STOOLS ORDERABLES Final Result [facility] [address] [place] [address], [facility] [phone] * AFB CULTURE AND STAIN (08/13/2022 5:15 PM EST) Result No Acid Fast Bacilli isolated at 6 weeks 09/25/2022 12:03 PM EST [facility] AFB Smear No acid fast bacilli seen 09/25/2022 12:03 PM EST [facility] Synovial Fluid STRUCTURE OF LEFT KNEE REGION / Unknown 08/13/2022 5:15 PM EST 08/14/2022 11:53 AM EST Jarret Garcia MD MICROBIOLOGY - GENERAL ORDERABLES Final Result [facility] [address] [phone] * Culture Fungus w/KIMBERLY or Veronica Ink (08/13/2022 5:15 PM EST) Result No fungus isolated at 6 weeks. 09/25/2022 12:03 PM EST [facility] KIMBERLY Prep No fungal elements seen 09/25/2022 12:03 PM EST [facility] Synovial Fluid STRUCTURE OF LEFT KNEE REGION / Unknown 08/13/2022 5:15 PM EST 08/14/2022 11:53 AM EST Jarret Garcia MD MICROBIOLOGY - GENERAL ORDERABLES Final Result [facility] [address] [place] [address], [facility] [phone] * Anaerobic Culture, Extended (P.acnes) (08/13/2022 5:15 PM EST) Result No anaerobic growth at 14 days. No Cutibacterium acnes (formerly Propionibacterium acnes) isolated 08/28/2022 9:07 AM EST [facility] Synovial Fluid STRUCTURE OF LEFT KNEE REGION / Unknown 08/13/2022 5:15 PM EST 08/14/2022 11:53 AM EST Jarret Garcia MD MICROBIOLOGY - GENERAL ORDERABLES Final Result [facility] [address] [place] [address], [facility] [phone] * Body fluid culture + gram stain (08/13/2022 5:15 PM EST) Result No growth 08/17/2022 8:04 AM EST [facility] Gram Stain Result Moderate WBCs 08/17/2022 8:04 AM EST [facility] Gram Stain Result No organisms seen 08/17/2022 8:04 AM EST [facility] Body Fluid STRUCTURE OF LEFT KNEE REGION / Unknown 08/13/2022 5:15 PM EST 08/14/2022 11:54 AM EST Jarret Garcia MD MICROBIOLOGY - GENERAL ORDERABLES Final Result [facility] [address] [phone] * Body fluid crystals (08/13/2022 5:15 PM EST) BODY FLUID TYPE Synovial 08/14/2022 1:16 PM EST [facility] Ca Phos Winter, UA Absent Absent 08/14/2022 1:16 PM [facility] Monosodium Urate Absent Absent 08/14/2022 1:16 PM EST [facility] Body Fluid Crystals No crystals seen. No crystals seen., See Comment 08/14/2022 1:16 PM [facility] Synovial Fluid STRUCTURE OF LEFT KNEE REGION / Unknown 08/13/2022 5:15 PM EST 08/14/2022 11:53 AM EST Jarret Garcia MD BODY FLUIDS AND STOOLS ORDERABLES Final Result Performing Organization Address [facility] Co de Phone Number [facility] [address] [phone] * (ABNORMAL) Body fluid cell count with differential (08/13/2022 5:15 PM EST) Appearance Bloody(A) Clear 08/14/2022 1:21 PM [facility] Color Red 08/14/2022 1:21 PM [facility] BODY FLUID TYPE Synovial 1:21 PM [facility] Auto WBC/Nucleated Cells BF 2,312 u/L 08/14/2022 1:21 PM [facility] Comment: Please refer to specific WBC/Nucleated Cell Count Body Fluid reference ranges below: For Pleural: 0-1000 Peritoneal: 0-1000 Pericardial:0-1000 Synovial: 0-200 Auto RBC BF 490,000 u/L 08/14/2022 1:21 PM [facility] Comment: Please refer to specific RBC Cell Count Body Fluid reference ranges below: Pleural: 0-10,000 Peritoneal: 0-10,000 Pericardial:0-10,000 Synovial:0-30 Body Fluid STRUCTURE OF LEFT KNEE REGION / Unknown 08/13/2022 5:15 PM EST 08/14/2022 11:54 AM EST Narrative [facility] - 08/14/2022 1:21 PM EST There is normally no readily obtainable pleural, peritoneal and pericardial fluid, hence normal elements for these potential fluids are not defined. Jarret Garcia MD BODY FLUIDS AND STOOLS ORDERABLES Final Result [facility] [address] [place] [address] documented in this encounter Visit Diagnoses Diagnosis Effusion, left knee documented in this encounter
--- OUTSIDE RECORDS SUMMARY | 2025-04-10 13:36 | XMS_ITS | Referral Summary ---
Author Organization [employer] ([place], [place], [place], [place]) Address [address] [place] [address] Care Team Providers Care Avionics System Engineer Name Role Phone Unavailable Primary Care Provider [...] Date Shaka rded Speak language other than Italian at home Not on file 10/14/2023 Want [...] Orientation Not on file Plan of Treatment Not on file Insurance [address] [place] [place] [id number] WILMA FREGOSO
== END 2025-04-10 23:59 | disposition home or self-care (01) ==
LOC: RT 13:31
PROVIDERS: PCP Nurse Practitioner Family; Visit Provider Nurse Practitioner
DX: I49.3 Ventricular premature depolarization (principal); I49.1 Atrial premature depolarization; I47.19 Other supraventricular tachycardia; R01.1 Cardiac murmur, unspecified
CPT/HCPCS: 93270

== ENCOUNTER 2025-04-18 13:10 | Outpatient (CLI) | payer MEDICARE, SELFPAY ==
--- OUTSIDE RECORDS SUMMARY | 2025-04-18 13:17 | XMS_ITS | Clinical Summary ---
Author Organization [employer] ([place], [place], [place], [place]) Address [address] [place] [address] Care Team Providers Care Gi Tech Name Role Phone Unavailable Primary Care Provider [...] Date Shaka rded Speak language other than Estonian at home Not on file 10/14/2023 Want [...]
--- OUTSIDE RECORDS SUMMARY | 2025-04-18 13:18 | XMS_ITS | Encounter Summary ---
Author Organization [employer] ([place], [place], [place], [place]) Address [address] [place] [address] Care Team Providers Care Product Director Name Role Phone Unavailable Primary Care Provider Unavailabl e Encounter Details Date Type Department Care Team (Late st Contact Info) Description 08/14/2022 Lab Requisition [facility] [address] [place] [address] Jarret aGrcia MD [address] [place] [address] Effusion, left knee Social History [...] knee documented in this encounter Results * [facility] DIFFERENTIAL, BODY FLUID (08/13/2022 5:15 PM EST) Neutrophils Fluid 91 0 - 25 % 08/14/2022 1:21 PM EST [facility] Lymphocytes Fluid 1 % 08/14/2022 1:21 PM EST [facility] Monocytes Fluid 7 0 - 65 % 1:21 PM EST [facility] % Eos 1 % 08/14/2022 1:21 PM EST [facility] Body Fluid STRUCTURE OF LEFT KNEE REGION / Unknown 08/13/2022 5:15 PM EST 08/14/2022 11:54 AM EST Jarret Garcia MD BODY FLUIDS AND STOOLS ORDERABLES Final Result [facility] [address] [place] [address], [facility] [phone] * AFB CULTURE AND STAIN (08/13/2022 5:15 PM EST) Result No Acid Fast Bacilli isolated at 6 weeks 09/25/2022 12:03 PM EST [facility] AFB Smear No acid fast bacilli seen 09/25/2022 12:03 PM EST [facility] Synovial Fluid STRUCTURE OF LEFT KNEE REGION / Unknown 08/13/2022 5:15 PM EST 08/14/2022 11:53 AM EST Jarret Garcia MD MICROBIOLOGY - GENERAL ORDERABLES Final Result [facility] [address] [phone] * Culture Fungus w/KIMBERLY or Veronica Ink (08/13/2022 5:15 PM EST) Result No fungus isolated at 6 weeks. 09/25/2022 12:03 PM EST [facility] KIMBERLY Prep No fungal elements seen 09/25/2022 12:03 PM EST [facility] Synovial Fluid STRUCTURE OF LEFT KNEE REGION / Unknown 08/13/2022 5:15 PM EST 08/14/2022 11:53 AM EST Jarret Garcia MD MICROBIOLOGY - GENERAL ORDERABLES Final Result [facility] [address] [place] [address], [facility] [phone] * Anaerobic Culture, Extended (P.acnes) (08/13/2022 5:15 PM EST) Result No anaerobic growth at 14 days. No Cutibacterium acnes (formerly Propionibacterium acnes) isolated 08/28/2022 9:07 AM EST [facility] Synovial Fluid STRUCTURE OF LEFT KNEE REGION / Unknown 08/13/2022 5:15 PM EST 08/14/2022 11:53 AM EST Jarret Garcia MD MICROBIOLOGY - GENERAL ORDERABLES Final Result [facility] [address] [place] [address], [facility] [phone] * Body fluid culture + gram stain (08/13/2022 5:15 PM EST) Result No growth 08/17/2022 8:04 AM EST [facility] Gram Stain Result Moderate WBCs 08/17/2022 8:04 AM EST [facility] Gram Stain Result No organisms seen 08/17/2022 8:04 AM EST [facility] Body Fluid STRUCTURE OF LEFT KNEE REGION / Unknown 08/13/2022 5:15 PM EST 08/14/2022 11:54 AM EST Jarret Garcia MD MICROBIOLOGY - GENERAL ORDERABLES Final Result [facility] [address] [phone] * Body fluid crystals (08/13/2022 5:15 PM EST) BODY FLUID TYPE Synovial 08/14/2022 1:16 PM EST [facility] Ca Phos Winter, UA Absent Absent 08/14/2022 1:16 PM [facility] Monosodium Urate Absent Absent 08/14/2022 1:16 PM EST [facility] Body Fluid Crystals No crystals seen. No crystals seen., See Comment 08/14/2022 1:16 PM [facility] Synovial Fluid STRUCTURE OF LEFT KNEE REGION / Unknown 08/13/2022 5:15 PM EST 08/14/2022 11:53 AM EST Jarret Garcia MD BODY FLUIDS AND STOOLS ORDERABLES Final Result Performing Organization Address [facility] Co de Phone Number [facility] [address] [phone] * (ABNORMAL) Body fluid cell count with differential (08/13/2022 5:15 PM EST) Appearance Bloody(A) Clear 08/14/2022 1:21 PM [facility] Color Red 08/14/2022 1:21 PM [facility] BODY FLUID TYPE Synovial 1:21 PM [facility] Auto WBC/Nucleated Cells BF 2,312 u/L 08/14/2022 1:21 PM [facility] Comment: Please refer to specific WBC/Nucleated Cell Count Body Fluid reference ranges below: For Pleural: 0-1000 Peritoneal: 0-1000 Pericardial:0-1000 Synovial: 0-200 Auto RBC BF 490,000 u/L 08/14/2022 1:21 PM [facility] Comment: Please refer to specific RBC Cell Count Body Fluid reference ranges below: Pleural: 0-10,000 Peritoneal: 0-10,000 Pericardial:0-10,000 Synovial:0-30 Body Fluid STRUCTURE OF LEFT KNEE REGION / Unknown 08/13/2022 5:15 PM EST 08/14/2022 11:54 AM EST Narrative [facility] - 08/14/2022 1:21 PM EST There is normally no readily obtainable pleural, peritoneal and pericardial fluid, hence normal elements for these potential fluids are not defined. Jarret Garcia MD BODY FLUIDS AND STOOLS ORDERABLES Final Result [facility] [address] [place] [address] documented in this encounter Visit Diagnoses Diagnosis Effusion, left knee documented in this encounter
--- OUTSIDE RECORDS SUMMARY | 2025-04-18 13:18 | XMS_ITS | Encounter Summary ---
Author Organization [employer] ([place], [place], [place], [place]) Address [address] [place] [address] Care Team Providers Care Plug Maker Name Role Phone Unavailable Primary Care Provider Unavailabl e Encounter Details Date Type Department Care Team (Late st Contact Info) Description 10/14/2023 Lab Requisition [facility] [address] [place] [address] Jarret Garcia MD [address] [place] [address] Effusion, left knee Social History [...] Date Shaka rded Speak language other than Mozambican at home Not on file 10/14/2023 Want [...] - 25 % 10/14/2023 8:10 PM EST [facility] Lymphocytes Fluid 46 % 10/14/2023 8:10 PM EST [facility] Monocytes Fluid 34 0 - 65 % 8:10 PM EST [facility] Mesothelial, Fluid 15 % 10/14/2023 8:10 PM EST [facility] Comment:Synoviocytes* Synovial Fluid STRUCTURE OF LEFT KNEE REGION / Unknown 10/14/2023 4:00 PM EST 10/14/2023 8:08 PM EST us Jarret Garcia MD BODY FLUIDS AND STOOLS ORDERABLES Final Result [facility] [address] [employer] [address] [phone] * Body fluid crystals (10/14/2023 4:00 PM EST) BODY FLUID TYPE Synovial 10/14/2023 8:10 PM EST [facility] Ca Phos Winter, UA Absent Absent 10/14/2023 8:10 PM EST [facility] Monosodium Urate Absent Absent 10/14/2023 8:10 PM EST [facility] Body Fluid Crystals No crystals seen. No crystals seen., See Comment 10/14/2023 8:10 PM EST [facility] Synovial Fluid STRUCTURE OF LEFT KNEE REGION / Unknown 10/14/2023 4:00 PM EST 10/14/2023 8:08 PM EST Narrative [facility] - 10/14/2023 8:10 PM EST Under polarized light, corticosteroids may appear identical to monosodium urates or calcium pyrophosphates, so please correlate with any history of intra-articular injection of steroids. Jarret Garcia MD BODY FLUIDS AND STOOLS ORDERABLES Final Result Performing Organization Address City/[facility]/ZIP Co de Phone Number [facility] [address] [phone] * Fungus Culture W/KIMBERLY Or Veronica Ink (10/14/2023 4:00 PM EST) Result No fungus isolated at 6 weeks. 11/25/2023 10:01 PM EDT [facility] KIMBERLY Prep No fungal elements seen 11/25/2023 10:01 PM EDT [facility] Synovial Fluid STRUCTURE OF LEFT KNEE REGION / Unknown 10/14/2023 4:00 PM EST 10/14/2023 8:09 PM EST us Jarret Garcia MD MICROBIOLOGY - GENERAL ORDERABLES Final Result [facility] [address] [phone] * AFB Culture And Stain (10/14/2023 4:00 PM EST) Result No Acid Fast Bacilli isolated at 6 weeks 11/25/2023 10:01 PM EDT [facility] AFB Smear No acid fast bacilli seen 11/25/2023 10:01 PM EDT [facility] Synovial Fluid STRUCTURE OF LEFT KNEE REGION / Unknown 10/14/2023 4:00 PM EST 10/14/2023 8:09 PM EST Jarret Garcia MD MICROBIOLOGY - GENERAL ORDERABLES Final Result Performing Organization Address [facility] Co de Phone Number [facility] [address] [phone] * (ABNORMAL) Body fluid cell count with differential (10/14/2023 4:00 PM EST) Appearance Hazy(A) Clear 10/14/2023 8:10 PM EST [facility] Color Yellow 10/14/2023 8:10 PM EST [facility] BODY FLUID TYPE Synovial 8:10 PM EST [facility] Auto WBC/Nucleated Cells BF 484 /uL 10/14/2023 8:10 PM EST [facility] Comment: Please refer to specific WBC/Nucleated Cell Count Body Fluid reference ranges below: For Pleural: 0-1000 Peritoneal: 0-1000 Pericardial:0-1000 Synovial: 0-200 Auto RBC BF 11,000 /uL 10/14/2023 8:10 PM EST [facility] Comment: Please refer to specific RBC Cell Count Body Fluid reference ranges below: Pleural: 0-10,000 Peritoneal: 0-10,000 Pericardial:0-10,000 Synovial:0-30 Synovial Fluid STRUCTURE OF LEFT KNEE REGION / Unknown 10/14/2023 4:00 PM EST 10/14/2023 8:08 PM EST Narrative [facility] - 10/14/2023 8:10 PM EST There is normally no readily obtainable pleural, peritoneal and pericardial fluid, hence normal elements for these potential fluids are not defined. Jarret Garcia MD BODY FLUIDS AND STOOLS ORDERABLES Final Result Performing Organization Address City/[facility]/ZIP Co de Phone Number [facility] [address] [phone] * Anaerobic Culture, Extended (P.acnes) (10/14/2023 4:00 PM EST) Result No anaerobic growth at 14 days. No Cutibacterium acnes (formerly Propionibacterium acnes) isolated 10/29/2023 9:09 AM EST [facility] Synovial Fluid STRUCTURE OF LEFT KNEE REGION / Unknown 10/14/2023 4:00 PM EST 10/14/2023 8:09 PM EST Jarret Garcia MD MICROBIOLOGY - GENERAL ORDERABLES Final Result [facility] [address] [phone] * Body Fluid Culture + Gram Stain (10/14/2023 4:00 PM EST) Result No growth 10/18/2023 7:35 AM EST [facility] Gram Stain Result No organisms seen 10/18/2023 7:35 AM EST [facility] Gram Stain Result No cells seen 10/18/2023 7:35 AM EST [facility] Synovial Fluid STRUCTURE OF LEFT KNEE REGION / Unknown 10/14/2023 4:00 PM EST 10/14/2023 8:09 PM EST Jarret Garcia MD MICROBIOLOGY - GENERAL ORDERABLES Final Result [facility] [address] [phone] documented in this encounter Visit Diagnoses Diagnosis Effusion, left knee documented in this encounter
--- OUTSIDE RECORDS SUMMARY | 2025-04-18 13:18 | XMS_ITS | Encounter Summary ---
Author Organization [employer] ([place], [place], [place], [place]) Address [address] [place] [address] Care Team Providers Care Buyer Renter Name Role Phone Unavailable Primary Care Provider Unavailabl e Encounter Details Date Type Department Care Team (Late st Contact Info) Description 01/28/2023 Lab Requisition [facility] [address] [place] [address] Jarret Garcia MD [address] [place] [address] Effusion, left knee Social History [...] - 25 % 01/28/2023 8:12 PM EDT [facility] Lymphocytes Fluid 57 % 01/28/2023 8:12 PM EDT [facility] Monocytes Fluid 38 0 - 65 % 8:12 PM EDT [facility] Synovial Fluid STRUCTURE OF LEFT KNEE REGION / Unknown 01/28/2023 11:40 AM EDT 01/28/2023 7:47 PM EDT Jarret Garcia MD BODY FLUIDS AND STOOLS ORDERABLES Final Result [facility] [address] [place] [address], [facility] [phone] * AFB Culture And Stain (01/28/2023 11:40 AM EDT) Result No Acid Fast Bacilli isolated at 6 weeks 03/11/2023 8:00 PM EDT [facility] AFB Smear No acid fast bacilli seen 03/11/2023 8:00 PM EDT [facility] Synovial Fluid STRUCTURE OF LEFT KNEE REGION / Unknown 01/28/2023 11:40 AM EDT 01/28/2023 7:47 PM EDT Jarret Garcia MD MICROBIOLOGY - GENERAL ORDERABLES Final Result [facility] [address] [place] [address], [facility] [phone] * Body fluid crystals (01/28/2023 11:40 AM EDT) BODY FLUID TYPE Synovial 8:10 PM EDT [facility] Ca Phos Winter, UA Absent Absent 01/28/2023 8:10 PM EDT [facility] Monosodium Urate Absent Absent 01/28/2023 8:10 PM EDT [facility] Synovial Fluid STRUCTURE OF LEFT KNEE REGION / Unknown 01/28/2023 11:40 AM EDT 01/28/2023 7:47 PM EDT Jarret Garcia MD BODY FLUIDS AND STOOLS ORDERABLES Final Result [facility] [address] [phone] * Fungus Culture W/KIMBERLY Or Veronica Ink (01/28/2023 11:40 AM EDT) Result No fungus isolated at 6 weeks. 03/11/2023 8:00 PM EDT [facility] KIMBERLY Prep No fungal elements seen 03/11/2023 8:00 PM EDT [facility] Synovial Fluid STRUCTURE OF LEFT KNEE REGION / Unknown 01/28/2023 11:40 AM EDT 01/28/2023 7:47 PM EDT Jarret Garcia MD MICROBIOLOGY - GENERAL ORDERABLES Final Result Performing Organization Address City/[facility]/ZIP Co de Phone Number [facility] [address] [phone] * (ABNORMAL) Body fluid cell count with differential (01/28/2023 11:40 AM EDT) Appearance Cloudy(A) Clear 01/28/2023 8:12 PM EDT [facility] Color Yellow 01/28/2023 8:12 PM EDT [facility] BODY FLUID TYPE Synovial 8:12 PM EDT [facility] Auto WBC/Nucleated Cells BF 332 u/L 01/28/2023 8:12 PM EDT [facility] Comment: Please refer to specific WBC/Nucleated Cell Count Body Fluid reference ranges below: For Pleural: 0-1000 Peritoneal: 0-1000 Pericardial:0-1000 Synovial: 0-200 Auto RBC BF 12,000 u/L 01/28/2023 8:12 PM EDT [facility] Comment: Please refer to specific RBC Cell Count Body Fluid reference ranges below: Pleural: 0-10,000 Peritoneal: 0-10,000 Pericardial:0-10,000 Synovial:0-30 Synovial Fluid STRUCTURE OF LEFT KNEE REGION / Unknown 01/28/2023 11:40 AM EDT 01/28/2023 7:47 PM EDT Narrative [facility] - 01/28/2023 8:12 PM EDT There is normally no readily obtainable pleural, peritoneal and pericardial fluid, hence normal elements for these potential fluids are not defined. Jarret Garcia MD BODY FLUIDS AND STOOLS ORDERABLES Final Result Performing Organization Address [facility] Co de Phone Number [facility] [address] [phone] * Body Fluid Culture + Gram Stain (01/28/2023 11:40 AM EDT) Result No growth 02/01/2023 8:10 AM EDT [facility] Gram Stain Result No cells seen 02/01/2023 8:10 AM EDT [facility] Gram Stain Result No organisms seen 02/01/2023 8:10 AM EDT [facility] Synovial Fluid STRUCTURE OF LEFT KNEE REGION / Unknown 01/28/2023 11:40 AM EDT 01/28/2023 7:47 PM EDT Jarret Garcia MD MICROBIOLOGY - GENERAL ORDERABLES Final Result Performing Organization Address [facility]/ZIP Co de Phone Number [facility] [address] [phone] * Anaerobic Culture, Extended (P.acnes) (01/28/2023 11:40 AM EDT) Result No anaerobic growth at 14 days. No Cutibacterium acnes (formerly Propionibacterium acnes) isolated 02/12/2023 8:03 AM EDT [facility] Synovial Fluid STRUCTURE OF LEFT KNEE REGION / Unknown 01/28/2023 11:40 AM EDT 01/28/2023 7:47 PM EDT us Jarret Garcia MD MICROBIOLOGY - GENERAL ORDERABLES Final Result Performing Organization Address City/State/[facility] Co de Phone Number [facility] [address] [phone] documented in this encounter Visit Diagnoses Diagnosis Effusion, left knee documented in this encounter
--- OUTSIDE RECORDS SUMMARY | 2025-04-18 13:18 | XMS_ITS | Clinical Summary ---
Author Organization Healthcare Address [address] [place] [address] Care Team Providers Care Security Operations Engineer Name Role Phone Renetta Harley AVIONICS SYSTEMS TECHNICIAN Primary Care Provider [phone] Syl Balderas AVIONICS SYSTEMS TECHNICIAN Unavailable [phone] Allergies No known active allergies Medications gabapentin [...] (2 of 2 - PCV) 07/05/2021 07/05/2020 [id number] Vaccine ( season) 2024 07/08/2021, 11/06/2020, 10/09/2020 [...] to complete this topic Insurance Care Teams Security Operations Engineer Relationship Specialty Start Date End Date Renetta Harley APRN [address] [place] [address] PCP - General 11/17/21 Syl Balderas APRN [address] [facility] [address] [place] [address] Nurse Practitioner Neurosurgery 01/19/22
--- OUTSIDE RECORDS SUMMARY | 2025-04-18 13:18 | XMS_ITS | Referral Summary ---
Author Organization [employer] ([place], [place], [place], [place]) Address [address] [place] [address] Care Team Providers Care Mechanical Energy Engineer Name Role Phone Unavailable Primary Care [...] Date Shaka rded Speak language other than Sammarinese at home Not on file 10/14/2023 Want [...] on file Insurance [address] [place] [id number] WILMA FREGOSO
--- OUTSIDE RECORDS SUMMARY | 2025-04-18 13:18 | XMS_ITS | Encounter Summary ---
Author Organization Healthcare Address [address] [place] [id number] Care Team Providers Care Batching Operator Name Role Phone Renetta Harley PLUMBER ASSISTANT Primary Care Provider [phone] Syl Balderas PLUMBER ASSISTANT Unavailable [phone] Reason for Referral * Consultation (Routine) - Closed Specialty Diagnoses / Procedures Referred By Kp woodruff Referred To Contact Neurosurgery Diagnoses Cervicalgia Renetta Harley APRN [address] [place] [address] Phone: tel: fax: Referral ID Status Reason Start Date Expiration Date V isits Requested Visits Authorized [id number] Closed Specialty Services Required 01/05/2022 07/07/2023 1 1 Encounter Details Date Type Department Care Team (Late st Contact Info) Description 01/05/2022 [facility] [address] [place] [address] Renetta Harley APRN [address] [place] [id number] Cervicalgia (Primary Dx) Social History Tobacco [...] Primary documented in this encounter Care Teams Batching Operator Relationship Specialty Start Date End Date Renetta Harley, PLUMBER ASSISTANT [address] [place] [id number] PCP - General 11/17/21 Syl Balderas, PLUMBER ASSISTANT [address] [facility] [address] [place] [address] Nurse Practitioner Neurosurgery 01/19/22 documented as of this encounter
--- NOTE | 2025-04-18 13:45 | CA_ITS ---
APPROVED REPORT EXAM: Comprehensive 2D, Doppler, and color-flow Echocardiogram Cyber Security Architect: Melba Briones RVT Ht: 6 ft 0 in Wt: 162lbs BSA: 1.95 BP: 157/87 mmHg Indications: MURMUR 2D Dimensions LA Volume 30.70 mL LA Volume Index 15.74 mL/m2 (M/F) 16-34 M-Mode Dimensions RVDd 2.50 cm (0.9-2.6) LA Diam 3.45 cm (1.9-4.0) LVDd 6.10 cm (3.5-5.7) LVDs 4.28 cm (3.5-5.7) IVSd 0.76 cm (0.6-1.1) PWd 0.68 cm (0.6-1.1) EF (Teich) 56.00% FS 29.80% EDV (Teich) 186.90 mL TAPSE 1.98 (<1.7) ESV (Teich) 82.20 mL LV Diastology E Decel Time 290 (160-240 msec) E/A Ratio 0.9 Aortic Valve MAGEN Index 1.26 cm2/m2 AoV Peak Lance. 129.0 (50-130 cm/s) AO Peak GR. 6.60 mmHg AO Mean GR. 3.50 (<5 mmHg) AO VTI 26.1 (18-25 cm) MAGEN (VTI) 2.52 (2.5-4.5 cm2) Mitral Valve MV E Max Lance. 60.0 (40-130 cm/s) MV A Velocity 67.0 (40-130 cm/s) E/A Ratio 0.90 MV PHT 85.0 ms Pulmonary Valve PV Peak Velocity 54.0 (50-150 cm/s) Tricuspid Valve TR P. Velocity 221.00 cm/s RAP Estimate 8.00 mmHg RVSP 27.60 mmHg Left Ventricle The left ventricle is normal size. Left ventricular systolic function is normal. The left ventricular ejection fraction is within the normal range. There is increased left ventricular wall thickness. There is normal LV segmental wall motion. Transmitral Doppler flow pattern suggests impaired LV relaxation. LVEF is 55%. Right Ventricle The right ventricle is mildly dilated. The right ventricular systolic function is normal. Atria The left atrium is mildly dilated. The right atrium is mildly dilated. There is no color Doppler evidence of interatrial shunt. Aortic Valve The aortic valve is mildly thickened. There is no hemodynamically significant aortic valvular stenosis. Mild aortic regurgitation is present. 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 Moderate mitral regurgitation is present. The MR jet is eccentric and posteriorly directed. Tricuspid Valve The tricuspid valve leaflets are thin and pliable. Trace tricuspid regurgitation. There is insufficient TR jet to estimate RVSP. Pulmonic Valve The pulmonary valve is grossly normal in structure. Trace pulmonic valve regurgitation is present. Great Vessels The aortic root is normal in size. IVC is normal in size and collapses >50% with inspiration. Pericardium There is no pericardial effusion. Other Information Study Quality: Fair Conclusion Normal biventricular systolic function. Mild RV dilation. Mild biatrial dilation. 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 Moderate mitral regurgitation is present. The MR jet is eccentric and posteriorly directed. Mild AI. Electronically signed by : Edita Mcdaniel MD 04/18/2025 15:20:48
== END 2025-04-18 23:59 | disposition home or self-care (01) ==
LOC: RT 13:10
PROVIDERS: PCP Nurse Practitioner Family; Visit Provider Nurse Practitioner
DX: I08.0 Rheumatic disorders of both mitral and aortic valves (principal); I49.3 Ventricular premature depolarization
CPT/HCPCS: 93306

== ENCOUNTER 2025-08-07 12:05 | Outpatient (CLI) | payer MEDICARE, SELFPAY ==
[2025-08-07 12:32] LABS: Hematocrit 46.6 % (42.0-52.0); Hemoglobin 15.4 g/dL (14.1-18.0); Immature Granulocytes % 0.1 %; Mean Corpuscular HGB Conc 33.0 g/dL (31.8-35.4); Mean Corpuscular Hemoglobin 30.6 pg (27.0-31.2); Mean Corpuscular Volume 92.6 fl (80-94); Nucleated Red Blood Cells % 0 %; Platelet Count 206 K/mm3 (142-424); Red Blood Count 5.03 M/mm3 (4.60-6.20); Red Cell Distribution Width-SD 45.0 fL; White Blood Count 6.9 K/mm3 (4.8-10.8)
[2025-08-07 13:30] LABS: Alanine Aminotransferase 23 U/L (12-78); Albumin Level 4.1 g/dl (3.5-5.0); Alkaline Phosphatase 77 U/L (38-126); Anion Gap 13.4 mEq/L (5-15); Aspartate Amino Transferase 29 U/L (17-59); Bilirubin,Direct 0.1 mg/dl (0.0-0.4); Bilirubin,Indirect 0.7 mg/dL (0.0-0.9); Bilirubin,Total 0.8 mg/dl (0.2-1.3); Bilirubin,Unconjugated 0.7 mg/dL (0.0-1.1); Blood Urea Nitrogen 17 mg/dl (9-20); Calcium 9.5 mg/dl (8.4-10.2); Carbon Dioxide 30 mmol/L (22.0-30.0); Chloride 103 mmol/L (98-107); Cholesterol 241 mg/dl (140-200); Creatinine,Serum 0.80 mg/dl (0.66-1.25); Estimated Glomerular Filt Rate 92 ml/min (>60); GFR (African American) 111 ML/MIN (>60); Glucose 139 mg/dl (74-100); HDL Cholesterol 60 mg/dl (40-60); Magnesium 2.2 mg/dl (1.6-2.3); Potassium 4.4 mmoL/L (3.5-5.1); Sodium 142 mmol/L (136-145); Total Protein,Serum 7.3 g/dl (6.3-8.2); Triglycerides 117 mg/dl (30-150)
[2025-08-07 13:46] LABS: Free T4 (Free Thyroxine) 1.08 ng/dl (0.78-2.19)
[2025-08-07 13:59] LABS: Thyroid Stimulating Hormone 1.49 uIU/mL (0.465-4.68)
== END 2025-08-07 23:59 | disposition home or self-care (01) ==
LOC: LAB 12:06
PROVIDERS: PCP Nurse Practitioner Family; Visit Provider Nurse Practitioner
DX: E78.49 Other hyperlipidemia (principal); E11.65 Type 2 diabetes mellitus with hyperglycemia; Z79.4 Long term (current) use of insulin
CPT/HCPCS: 36415; 80048; 80061; 80076; 83735; 84439; 84443; 85025